=== PATIENT | female | born 1955 | race Caucasian/White ===

== ENCOUNTER → 2022-02-24 | Outpatient (CLI) | payer MEDICARE ==
[~2022-02-24] MED LIST: IBUP600 PO; Norco 5-325 Ta1 EACH PO
[2022-02-24 19:37] LABS: CHOL/HDL RATIO 3.8; Cholesterol 166 mg/dL (50-200); HDL Cholesterol 44 mg/dL (>39); Low Density Lipoprotein Chol 88 mg/dL (0-110); Triglycerides 171 mg/dL (30-160); Very Low Density Lipoprot Chol 34 mg/dL (6-32)
== END | disposition home or self-care (01) ==
LOC: LAB 13:16 → LAB SHORT 13:16
PROVIDERS: Physician Assistant
DX: E78.5 Hyperlipidemia, unspecified (principal)
CPT/HCPCS: 36415; 80061

== ENCOUNTER 2022-07-24 09:32 | Day surgery (SDC) | payer OTHER ==
[~2022-07-24] VITALS: Ht 154.9 cm; Wt 56.2 kg
[~2022-07-24 09:32] MED LIST changes: +ATOR40TA PO; +DOXE10 PO; +GABA300 PO
--- NOTE | 2022-07-24 11:18 | NUR ---
07/24/22 1118 Meera Muse HISTORY, CHART, MEDICATIONS AND ALLERGIES REVIEWED BEFORE START OF PROCEDURE. PATIENT CONFIRMS NPO STATUS AND AGREES WITH SCHEDULED PROCEDURE. 3-LEAD EKG REVIEWED WITH PHYSICIAN PRIOR TO START OF PROCEDURE. MONITOR INTACT WITH CONTINUOUS PULSE OXIMETRY,CAPNOGRAPHY, 3-LEAD EKG, INTERMITTENT BP. SUPPLEMENTAL O2 TO BE TITRATED THROUGHOUT PROCEDURE TO MAINTAIN O2 SATURATION ABOVE 90%. PATIENT DETERMINED TO BE ASA APPROPRIATE FOR PROPOFOL SEDATION PRIOR TO START OF PROCEDURE BY
--- NOTE | 2022-07-24 11:36 | NUR ---
REPORT RECEIVED FROM ROSARIO ARORA RN. PT ABLE TO REPOSITION SELF IN BED. PT DENIES PAIN OR DISCOMFORT AT THIS TIME. PT REQUESTING PO FLUIDS AND TOLERATING THEM WELL.
--- NOTE | 2022-07-24 11:45 | NUR ---
REPORT FROM NENA FIORE RN. PT AXOX4, ABLE TO REPOSITION SELF IN BED, VSS. PT TOLERATING PO FLUIDS AND FOOD, REQUESTING TO GO HOME.
--- NOTE | 2022-07-24 11:55 | NUR ---
Patient up to Ambulate independently. Gait steady. Discharge instructions reviewed with patient. Patient verbalizes understanding. Copy given to patient to take home. Patient States Post-Procedure ride home has been arranged. Discharged via wheelchair to private car for ride home. ALL BELONGINGS RETURNED TO PATIENT, TO INCLUDE EYE GLASSES.
== END 2022-07-24 22:48 | disposition home or self-care (01) ==
LOC: ORSCMMR 09:32 → ORD 10:30 → ORSCMMR 10:30
PROVIDERS: Internal Medicine Gastroenterology
PROC: 0DBK8ZX Excision of Ascending Colon, Via Natural or Artificial Opening Endoscopic, Diagnostic (ICD-10-PCS; principal; 2022-07-24 10:30)
DX: Z12.11 Encounter for screening for malignant neoplasm of colon (principal); Z86.010 Personal history of colon polyps; Z80.0 Family history of malignant neoplasm of digestive organs; K63.5 Polyp of colon; E78.00 Pure hypercholesterolemia, unspecified; F32.A Depression, unspecified; Z79.899 Other long term (current) drug therapy
CPT/HCPCS: 88305; J2704; J7120

== ENCOUNTER 2022-11-29 10:29 | Inpatient (IN) | payer OTHER ==
[2022-11-29] VITALS (36 sets, daily range): BP systolic 68–149; BP diastolic 48–102
[~2022-11-29] VITALS: Ht 167.6 cm; Wt 55.7 kg
[2022-11-29 11:15] LABS: Albumin, Blood 2.9 g/dL (3.4-5.0); Albumin/Globulin Ratio 0.8 (0.8-1.8); Bilirubin, Total 2.2 mg/dL (0.1-1.0); Bun/Creatinine Ratio 6.9 (12.0-20.0); Calcium, Blood 6.6 mg/dL (8.5-10.1); Creatinine, Blood 0.44 mg/dL (0.40-1.00); Globulin, Blood 3.6 g/dL (2.2-4.0); Total Protein, Blood 6.5 g/dL (6.4-8.2)
[2022-11-29 11:41] LABS: Base Excess Venous -7.4 mmol/L; Bicarbonate Venous 18.6 mmol/L (24.0-30.0); PCO2 Venous 38.3 mmHg (38-42)
[2022-11-29 13:06] LABS: Source, Urine Straight Cath
[2022-11-29 13:10] LABS: Appearance, Urine Clear (Clear); Bilirubin, Urine Neg (Neg); Blood, Urine 4+ (Neg); Color, Urine Yellow (P-Yellow); Glucose Qualitative, Urine 3+ (Neg); Ketones, Urine 1+ (Neg); Leukocyte Esterase, Urine Neg (Neg); Nitrite, Urine Neg (Neg); Protein, Urine 1+ (Neg); Urobilinogen, Urine NORM (Normal)
[2022-11-29 13:21] LABS: Amorphous Mod (0-Heavy); Bacteria Not Seen /hpf; Squamous Epithelial Cells Few /hpf (Few); White Blood Cells, Urine 0-2 /hpf (0-5)
[2022-11-29 13:22] LABS: Transitional Epithelial Cells Rare /hpf (0-Rare)
[2022-11-29 13:23] LABS: U Amphetamine Screen Not Detected; U Barbituate Screen Not Detected; U Benzodiazapine Screen Not Detected; U Buprenorphine Screen Not Detected; U Cannabinoids Screen Not Detected; U Cocaine Screen Not Detected; U Methadone Screen Not Detected; U Methamphetamine Screen Not Detected; U Opiates Screen Not Detected; U Oxycodone Screen Not Detected; U Phencyclidine Screen Not Detected; U Propoxyphene Screen Not Detected
[2022-11-29 14:08] LABS: BASOPHILS ABSOLUTE AUTO 0.03 K/mm3 (0.00-0.23); BASOPHILS PERCENT AUTO 0 % (0-2); EOSINOPHILS PERCENT AUTO 0 % (0-6); Hematocrit 28.8 % (33.0-51.0); IMMATURE GRAN ABSOLUTE AUTO 0.11 K/mm3 (0.00-0.10); IMMATURE GRAN PERCENT AUTO 1 % (0-1); LYMPHOCYTES ABSOLUTE AUTO 1.69 K/mm3 (0.84-5.20); LYMPHOCYTES PERCENT AUTO 12 % (21-46); MONOCYTES ABSOLUTE AUTO 1.85 K/mm3 (0.16-1.47); MONOCYTES PERCENT AUTO 13 % (4-13); Mean Corpuscular Volume 97 fL (80-100); Mean Platelet Volume 10.4 fL (9.1-12.4); NEUTROPHILS ABSOLUTE AUTO 10.42 K/mm3 (1.96-9.15); NEUTROPHILS PERCENT AUTO 74 % (41-73); NRBC ABSOLUTE 0.04 K/mm3 (0.00-0.02); NRBC Auto 0.3 /100 WBC (0.0-0.2); Platelet Count 139 K/mm3 (150-400); RDW Coefficient Variation 14.6 % (11.7-14.2); RDW Standard Deviation 52.3 fL (35.1-46.3); Red Blood Cell Count 2.96 M/mm3 (3.80-5.20)
--- NOTE | 2022-11-29 16:29 | NUR ---
PT ARRIVAL... PT WAS ADMITTED FOR ETOH W/D. PRECEDEX DRIP WAS STARTED. PT IS A&O TO SELF ONLY, SHE KEEPS ASKING FOR WINE AND THINKS SHE IS AT HOME. SHE IS IN SR IN THE 80'S-90'S BP IS SOFT BUT MAPS ARE >65. SHE IS ON RA WITH O2 SATS>95% L/S CLEAR IN THE UPPER LOBES COARSE IN THE LOWER LOBES. BT PRESENT AND NORMOACTIVE, ABD IS SOFT AND NONTENDER TO PALPATION. CWIA PROTOCOL ORDERED. CALL LIGHT IN REACH WILL CONTINUE TO MONITOR.
[2022-11-29 16:43] LABS: Magnesium, Blood 2.2 mg/dL (1.6-2.4)
[2022-11-29 16:45] LABS: Albumin, Blood 2.9 g/dL (3.4-5.0); Albumin/Globulin Ratio 0.9 (0.8-1.8); Bilirubin, Total 2.1 mg/dL (0.1-1.0); Calcium, Blood 7.2 mg/dL (8.5-10.1); Creatinine, Blood 0.4 mg/dL (0.40-1.00); Globulin, Blood 3.1 g/dL (2.2-4.0); Potassium, Blood 2.7 mmol/L (3.5-5.5)
--- NOTE | 2022-11-29 17:23 | NUR ---
SHIFT SUMMARY.... PT HAS BEEN MEDICATED PER [facility] PROTOCOL ALONG WITH THE PRECEDEX DRIP, THE PT BECAME HYPOTENSIVE WITH THE PRECEDEX DRIP RUNNING AT 0.7MCG/KG/HR, THIS WAS STOPPED, THE PT'S BP IMPROVED TO MAPS >65. THE PRECEDEX DRIP WAS RESTARTED AT 0.2MCG/KG/HR CURRENTLY HER MAPS CONTINUE TO HOLD >65 AT LOWER DOSES. SHE CONTINUES TO BE IN SR IN THE 80'S. SHE ALSO CONTINUES TO BE CONFUSED, SHE WILL FOLLOW SOME SIMPLE COMMANDS BUT IS ORIENTED TO SELF ONLY AT THIS TIME. CALL LIGHT IN REACH, BED ALARM IS ON WILL CONTINUE TO MONITOR UNTIL REPORT IS GIVEN TO ONCOMING RN.
--- NOTE | 2022-11-29 22:42 | NUR ---
ASSUMPTION OF CARE/ASSESSMENT: ASSUMED CARE OF PT AT 1900. PT IN BED ASLEEP; PRECEDEX INFUSING AT 0.3 MCG. PT WAKES TO VERBAL STIMULI BUT REMAINS AMS; PT A&O TO SELF AND THINKS THAT SHE IS AT HOME AND CANNOT ANSWER ANY OTHER QUESTIONS. PT ATTEMPTING TO GET OUT OF BED UNSAFELY AND IS NOT REDIRECTABLE AT THIS TIME. PT ON RA WITH SPO2 96<; LUNG SOUNDS CLEAR WITH DIM BASES. SR ON MONITOR WITH HR 70'S AND SBO 110'S; PT DOES GET TACHYCARDIA WHEN AWAKE AND DURING PT CARE. HYPOACTIVE BOWEL SOUNDS IN ALL QUADRANTS; ABD SOFT, NON-TENDER AND PT CURRENTLY NPO. FRANCIS PLACED THIS SHIFT AFTER A COUPLE BLADDER SCANS POST VOIDING SHOWING ACUTE RETENTION. FRANCIS PLACED AND DRAINING TO GRAVITY WITH CLEAR, YELLOW URINE. SKIN WARM, WITH SCATTERED BRUSING NOTE AND SIGNIFICANT BRUISE TO LOWER LIP FROM RECENT FALL AT HOME. PT HAS PG TO DIANDRA, PIV TO RAC. BED LOWERED, CALL LIGHT IN REACH.
[2022-11-30] VITALS (89 sets, daily range): BP systolic 87–156; BP diastolic 52–133
[2022-11-30 00:18] LABS: Source, Urine Foley catheter
[2022-11-30 00:25] LABS: Bilirubin, Urine Neg (Neg); Blood, Urine 3+ (Neg); Glucose Qualitative, Urine Neg (Neg); Ketones, Urine Neg (Neg); Leukocyte Esterase, Urine Neg (Neg); Nitrite, Urine Neg (Neg); Protein, Urine Neg (Neg); Specific Gravity, Urine 1.015 (1.003-1.022); Urobilinogen, Urine NORM (Normal)
[2022-11-30 00:40] LABS: Appearance, Urine Clear (Clear); Color, Urine Yellow (P-Yellow)
[2022-11-30 00:43] LABS: Bacteria Not Seen /hpf; Squamous Epithelial Cells Not Seen /hpf (Few); White Blood Cells, Urine Not Seen /hpf (0-5)
[2022-11-30 01:09] LABS: Magnesium, Blood 1.7 mg/dL (1.6-2.4)
[2022-11-30 01:16] LABS: Albumin, Blood 2.4 g/dL (3.4-5.0); Albumin/Globulin Ratio 0.9 (0.8-1.8); Bilirubin, Total 1.9 mg/dL (0.1-1.0); Bun/Creatinine Ratio 4.4 (12.0-20.0); Calcium, Blood 6.4 mg/dL (8.5-10.1); Creatinine, Blood 0.45 mg/dL (0.40-1.00); Globulin, Blood 2.7 g/dL (2.2-4.0); Total Protein, Blood 5.1 g/dL (6.4-8.2)
--- NOTE | 2022-11-30 05:54 | NUR ---
SHIFT SUMMARY: PT REMAINS CONFUSED AND ON PRECEDEX GTT @ 0.6 MCG/KG/HR; PT WAKES TO VERBAL STIMULI AND CANNOT PARTICIPATE IN ORIENTING QUESTIONS, FOLLOWING COMMANDS OR REDIRECTABLE AT THIS TIME. VSS THROUGHOUT THE NIGHT. PT HAD 2500 URINE OUTPUT FROM FRANCIS THIS SHIFT. BED LOWERED, CALL LIGHT IN REACH.
[2022-11-30 07:21] LABS: Magnesium, Blood 1.7 mg/dL (1.6-2.4)
[2022-11-30 08:29] LABS: Albumin, Blood 2.2 g/dL (3.4-5.0); Albumin/Globulin Ratio 0.8 (0.8-1.8); Bilirubin, Total 1.7 mg/dL (0.1-1.0); Bun/Creatinine Ratio 2.6 (12.0-20.0); Calcium, Blood 6.4 mg/dL (8.5-10.1); Creatinine, Blood 0.39 mg/dL (0.40-1.00); Globulin, Blood 2.6 g/dL (2.2-4.0); Potassium, Blood 2.4 mmol/L (3.5-5.5); Total Protein, Blood 4.8 g/dL (6.4-8.2)
--- NOTE | 2022-11-30 08:48 | NUR ---
AM NOTE... ASSUMED CARE OF PT AT 0700. PT IS ON A PRECEDEX DRIP AT 0.4MCG/KG/HR FOR ETOH W/D. PT IS YELLING OUT "GM" AND "GIVE ME SOME WINE PLEASE." SHE IS ALSO ATTEMPTING TO PULL OUT HER IVs AND CLIMB OUT OF BED. SOFT WRIST RESTRAINTS ARE IN PLACE TO PROTECT LINES. THE PT IS A&O TO SELF. SHE IS ON RA WITH O2 SATS>95% L/S CLEAR T/O. SHE IS IN SR IN THE 80'S BP IS STABLE. WILL CONTINUE TO MONITOR.
--- NOTE | 2022-11-30 17:11 | NUR ---
SHIFT SUMMARY.... NO ACUTE NEGATIVE CHANGES NOTED THIS SHIFT. PT CONTINUES TO BE ON A PRECEDEX DRIP AT 0.5MCG/KG/HR WITH PRN IV ATIVAN PUSHES PER CIWA PROTOCOLS. PT'S VS HAVE BEEN STABLE. PT'S FRANCIS IS PATENT AND DRAINING TO GRAVITY. PT'S CIWA'S SCORES HAVE BEEN 8-14. SHE CONTINUES TO HAVE VISUAL HALLUCINATIONS AND ATTEMPTS TO CRAWL OUT OF BED. PT'S SON ANNIKA WAS AT THE BEDSIDE MOST OF THIS SHIFT. CALL LIGHT IN REACH, BED ALARM IS ON WILL CONTINUE TO MONITOR UNTIL REPORT IS GIVEN TO ONCOMING RN.
--- NOTE | 2022-11-30 20:31 | NUR ---
PATIENT RESTING IN BED WITH TV ON. AWAKENS TO VERBAL STIMULI, THINKING THAT SHE IS IN GM'S HOUSE AND THAT IT IS 1978. ABLE TO SAY FULL NAME AND DATE AND THAT SHE IS 66 Y/O. ASKING FOR WINE AND DOG FOOD. INSISTING THAT HER DOG IS HERE AT THE FOOT OF HER BED. ANIBAL DRINKS OF WATER WITHOUT DIFFICULTY. POSITIONING SELF IN BED FOR COMFORT. C/O LEG AND HIP PAIN WITH POSITIONING. MULTIPLE BRUISING TO BODY, LARGE BRUISE TO RIGHT BOTTOM LIP.
[2022-11-30 20:43] LABS: Bun/Creatinine Ratio 2.2 (12.0-20.0); Calcium, Blood 7.1 mg/dL (8.5-10.1); Creatinine, Blood 0.46 mg/dL (0.40-1.00); Magnesium, Blood 1.5 mg/dL (1.6-2.4); Potassium, Blood 3.8 mmol/L (3.5-5.5)
--- NOTE | 2022-11-30 20:59 | NUR ---
DOCTOR CHRIS NOTIFIED OF REPEAT CHEM RESULTS, ORDER FOR MAG REPLACEMENT OBTAINED
[2022-12-01] VITALS (66 sets, daily range): BP systolic 77–169; BP diastolic 49–118
[2022-12-01 04:07] LABS: BASOPHILS ABSOLUTE AUTO 0.01 K/mm3 (0.00-0.23); BASOPHILS PERCENT AUTO 0 % (0-2); EOSINOPHILS ABSOLUTE AUTO 0.01 K/mm3 (0.00-0.68); EOSINOPHILS PERCENT AUTO 0 % (0-6); Hematocrit 29.4 % (33.0-51.0); Hemoglobin 10.4 g/dL (11.5-16.0); IMMATURE GRAN ABSOLUTE AUTO 0.03 K/mm3 (0.00-0.10); IMMATURE GRAN PERCENT AUTO 0 % (0-1); LYMPHOCYTES ABSOLUTE AUTO 2.01 K/mm3 (0.84-5.20); LYMPHOCYTES PERCENT AUTO 28 % (21-46); MONOCYTES ABSOLUTE AUTO 1.03 K/mm3 (0.16-1.47); MONOCYTES PERCENT AUTO 14 % (4-13); Mean Corpuscular HGB 37.3 pg (26.0-34.0); Mean Corpuscular HGB Conc 35.4 g/dL (31.5-36.5); Mean Platelet Volume 10.1 fL (9.1-12.4); NEUTROPHILS ABSOLUTE AUTO 4.18 K/mm3 (1.96-9.15); NEUTROPHILS PERCENT AUTO 58 % (41-73); Platelet Count 142 K/mm3 (150-400); RDW Coefficient Variation 15.9 % (11.7-14.2); RDW Standard Deviation 61.2 fL (35.1-46.3); Red Blood Cell Count 2.79 M/mm3 (3.80-5.20); White Blood Cell Count 7.27 K/mm3 (4.00-11.30)
[2022-12-01 04:08] LABS: Mean Corpuscular Volume 105 fL (80-100)
[2022-12-01 04:26] LABS: Albumin, Blood 2.3 g/dL (3.4-5.0); Albumin/Globulin Ratio 0.9 (0.8-1.8); Bilirubin, Total 1.5 mg/dL (0.1-1.0); Bun/Creatinine Ratio 2.1 (12.0-20.0); Calcium, Blood 7.1 mg/dL (8.5-10.1); Creatinine, Blood 0.48 mg/dL (0.40-1.00); Globulin, Blood 2.7 g/dL (2.2-4.0); Magnesium, Blood 2.4 mg/dL (1.6-2.4)
--- NOTE | 2022-12-01 06:42 | NUR ---
SUMMARY PATIENT SLEEPING OFF AND ON T/O NIGHT. PRECEDEX 0.3 MCG INFUSING. HYPOTENSIVE WHILE SLEEPING IV METOPROLOL HELD THIS MORNING. PATIENT MEDICATED ONCE WITH OXYCODONE FOR PAIN. ATIVAN IV GIVEN AROUND MIDNIGHT FOR INCREASED RESTLESS AND DIFFICULTY SLEEPING. CONTINUES TO ASK FOR WINE. NO LONGER SEEING HER DOG AT THE FOOT OF THE BED.
--- NOTE | 2022-12-01 07:15 | NUR ---
CARE ASSUMPTION DURING BEDSIDE SHIFT REPORT Burke LOJA RN THE PT IS LYING IN BED ON RM AIR. THE PT AROUSES TO MY VOICE AND APPEARS MODERATELY TREMULOUS ONCE AWAKE. PT HAS MUMBLED SPEECH BUT IS ANSWERING QUESTIONS APPROPRIATELY. MONITOR SHOWING SR 90'S. BP STABLE. PT DENIES ANY NAUSEA. PT'S EYES ARE VERY BLOO-SHOT AND HE APPEARS PHYSICALLY VERY SICK. PT PARTICIPATES IN CARE AND DENIES ANY FURTHER NEEDS AT THIS TIME. 1 ON 1 SITTER IN PT'S DOOR.
--- NOTE | 2022-12-01 12:36 | NUR ---
UPDATE PROVIDER CONTACTED AND NOTIFIED THAT THE PT'S HR WENT UP TO 151 WHEN SHE WAS STOOD UP AT THE SIDE OF THE BED. PROVIDER ALSO NOTIFIED OF THIS RN'S CONCERNS TAHT THE PT IS ASPIRATING ON HER THIN LIQUIDS. ST ORDERED.
--- NOTE | 2022-12-01 15:11 | NUR ---
UPDATE/NEURO CHANGES PT'S SPEECH BECOMING MUCH MORE SLURRED APPEARING TO BE HAVING DIFFICULTY SWALLOWING HER SECRETIONS AT THIS TIME. PT'S AUTOMATIC MOLD SANDER, ARM STRENGTH, AND LEG STRENGTH ARE ALL STRONG AND EVEN. PT'S MENTATION IS NOT MUCH DIFFERENT THEN IT WAS EARLIER IN THE SHIFT BUT SHE DOES SEEM TO BE REPEATING BACK SENTANCES THAT ARE SAID TO HER WHICH SHE WAS NOT DOING EARLIER IN THE SHIFT. DR. GANNON CONTACTED AND NOTIFIED OF THESE CHANGES. ORDERS FOR CHEM PANEL, MAGNESIUM LEVEL, VBG AND STAT HEAD CT. PT TO REMAIN ICU STATUS AND BOTH LIBRIUM AND ATIVAN ORDERS DC'D.
[2022-12-01 15:28] LABS: Base Excess Venous 0.5 mmol/L; Bicarbonate Venous 25.3 mmol/L (24.0-30.0); PCO2 Venous 32.8 mmHg (38-42); pH Blood Venous 7.48 (7.34-7.37)
[2022-12-01 15:39] LABS: Magnesium, Blood 1.8 mg/dL (1.6-2.4)
[2022-12-01 15:45] LABS: Alanine Aminotransfer (ALT/SGP 73 U/L (12-78); Albumin, Blood 2.7 g/dL (3.4-5.0); Alk Phos 255 U/L (50-136); Anion Gap 9 mmol/L (6-16); Aspartate Aminotrans (AST/SGOT 170 U/L (12-37); Bilirubin, Total 1.6 mg/dL (0.1-1.0); Blood Urea Nitrogen <1 mg/dL (8-24); Bun/Creatinine Ratio Unable to Calculate (12.0-20.0); CO2, Blood 23 mmol/L (21-32); Calcium, Blood 7.3 mg/dL (8.5-10.1); Chloride, Blood 100 mmol/L (98-108); Globulin, Blood 2.8 g/dL (2.2-4.0); Glomerular Filtration Rate 102 (60-); Glucose, Blood 110 mg/dL (70-99); Potassium, Blood 3.5 mmol/L (3.5-5.5); Sodium, Blood 132 mmol/L (136-145); Total Protein, Blood 5.5 g/dL (6.4-8.2)
--- NOTE | 2022-12-01 18:09 | NUR ---
DAY SHIFT SUMMARY THE PT BEGAN THE SHIFT ON PRECEDEX 0.3MCG/KG/MIN W MINIMAL AGITATION BUT VERY CONFUSED. THE PT WAS TAKEN OFF OF PRECEDEX PER MD REQUEST AND WAS GIVEN LIBRIUM AND ATIVAN FOR WITHDRAWL SYMTOMS. PT WAS ABLE TO FOLLOW SOME COMMANDS AND DISPLAY AN EFFECTIVE SWALLOW THIS AM BUT BEFORE LUNCH SHE BEGAN TO HAVE A TIGHT RESP EFFORT ALMOST GRUNTING W EXHALATION WHILE AWAKE. PT SPEECH THERAPY EVALUATE HER SWALLOWING ABILITY AND THEY RECCOMEND NPO STATUS EXCEPT FOR CRUSHED MEDS IN APPLESAUCE. THE PT HAS BEEN VERY AGITATED AND CONFUSED THIS SHIFT REQUIRING ADDITIONAL DOSES OF ATIVAN AND LIBRIUM. THIS AFTERNOON THE PT'S SPEECH WAS NOTICEABLY MORE SLURRED AND HER R EYELID WAS VERY DROOPY. PT'S CBG CHECKED AND WAS 122. PROVIDER NOTIFIED OF CHANGE IN NEURO STATUS SO LABS AND HEAD CT ORDERED. PROVIDER EVALUATED THE PT AT BEDSIDE TO WHICH THE PT WAS ASLEEP BUT WHEN AWOKE SHE BECAME VERY AGITATED AND HER HR WAS ST 130'S. PT PLACED BACK ON PRECEDEX PER MD ORDER INSTEAD OF LIBRIUM AND ATIVAN USE. THE PT'S HR HAS BEEN ELEVATED ALL SHIFT HIGH 150 WHEN SHE ATTMPTED TO STAND AT THE BEDSIDE. PT'S BP ELEVATED THIS SHIFT WELL BUT IS WNL AND STABLE THIS AFTEERNOON. PO METOPROLOL ORDERED THIS SHIFT BUT HAS NOT BEEN GIVEN YET DUE TO RESARTING PRECEDEX WHICH HAS LOWERED HER HR AND BP. PT MAINTAINING SPO2 >94% ON RM AIR THIS SHIFT. LS WERE CLEAR THIS AM BUT SHE DOES HAVE SOME COARSE LS IN HER R BASE THIS AFTERNOON. CIWA'S REMAIN 9-14 THIS SHIFT. WILL REPORT TO ONCOMING RN.
--- NOTE | 2022-12-01 18:39 | NUR ---
UPDATE THIS RN SPOKE TO PT'S SON NOTIFYING HIM OF CHANGES AND PT'S CONTINUED ICU STATUS.
--- NOTE | 2022-12-01 19:40 | NUR ---
PATIENT SLEEPING, AWAKENS TO SLIGHT STIMULI. MOVING ALL EXTREMITIES EQUALLY AND ABLE TO REMEMBER THAT SHE IS IN THE HOSPITAL IN [place], AND THAT IT IS NOVEMBER, BUT UNSURE OF YEAR. PATIENT WANTING TO KEEP EYES CLOSED, OPEN TO DIRECTION RIGHT EYE LID APPEARS SLIGHTLY SWOLLEN. JANET. SLIGHT GRUNT WHEN TALKING "I JUST DON'T FEEL GOOD" PRECEDEX 0.4 MCG INFUSING. C/O PAIN WITH REPOSITIONING, BUT IS ABLE TO POSITION SELF IN BED FOR COMFORT.
[2022-12-02] VITALS (38 sets, daily range): BP systolic 98–172; BP diastolic 65–112
[2022-12-02 04:18] LABS: BASOPHILS ABSOLUTE AUTO 0.03 K/mm3 (0.00-0.23); BASOPHILS PERCENT AUTO 0 % (0-2); EOSINOPHILS ABSOLUTE AUTO 0.03 K/mm3 (0.00-0.68); EOSINOPHILS PERCENT AUTO 0 % (0-6); Hematocrit 30.8 % (33.0-51.0); Hemoglobin 10.5 g/dL (11.5-16.0); IMMATURE GRAN ABSOLUTE AUTO 0.02 K/mm3 (0.00-0.10); IMMATURE GRAN PERCENT AUTO 0 % (0-1); LYMPHOCYTES ABSOLUTE AUTO 2.34 K/mm3 (0.84-5.20); LYMPHOCYTES PERCENT AUTO 34 % (21-46); MONOCYTES PERCENT AUTO 16 % (4-13); Mean Corpuscular HGB 37.2 pg (26.0-34.0); Mean Corpuscular HGB Conc 34.1 g/dL (31.5-36.5); Mean Corpuscular Volume 109 fL (80-100); Mean Platelet Volume 9.6 fL (9.1-12.4); NEUTROPHILS ABSOLUTE AUTO 3.43 K/mm3 (1.96-9.15); NEUTROPHILS PERCENT AUTO 49 % (41-73); NRBC ABSOLUTE 0.02 K/mm3 (0.00-0.02); NRBC Auto 0.3 /100 WBC (0.0-0.2); Platelet Count 142 K/mm3 (150-400); RDW Coefficient Variation 16.2 % (11.7-14.2); RDW Standard Deviation 65.9 fL (35.1-46.3); Red Blood Cell Count 2.82 M/mm3 (3.80-5.20); White Blood Cell Count 6.95 K/mm3 (4.00-11.30)
[2022-12-02 04:33] LABS: Albumin, Blood 2.3 g/dL (3.4-5.0); Albumin/Globulin Ratio 0.9 (0.8-1.8); Bilirubin, Total 1.3 mg/dL (0.1-1.0); Bun/Creatinine Ratio 1.9 (12.0-20.0); Calcium, Blood 7.4 mg/dL (8.5-10.1); Creatinine, Blood 0.53 mg/dL (0.40-1.00); Globulin, Blood 2.6 g/dL (2.2-4.0); Potassium, Blood 3.1 mmol/L (3.5-5.5); Total Protein, Blood 4.9 g/dL (6.4-8.2)
--- NOTE | 2022-12-02 05:57 | NUR ---
SUMMARY PATIENT SLEEPING OFF AND ON T/O NIGHT. AWAKENS TO VERBAL STIMULI. REPOSITIONING SELF FROM SIDE TO SIDE T/O NIGHT FOR COMFORT. PRECEDEX TITRATED DOWN TO 0.2 MCG. HEART RATE 80-90'S SR T/O NIGHT.
--- NOTE | 2022-12-02 08:00 | NUR ---
INITIAL ASSESSMENT PATIENT HAS OFF AND ON CONFUSION. PATIENT ABLE TO ANSWER SELF, PLACE, TOWN, AND YEAR WHEN ASKING QUESTIONS WITH OFF GOING NIGHT NURSE. PATIENT NOW DISORIENTED TO YEAR AND STATES SHE IS IN [place]. PATIENT DROWSY. PATIENT SLEEPS WHEN NURSE NOT IN ROOM. PATIENT COMPLAINS OF PAIN "ALL OVER". FLAT AFFECT NOTED. SPEECH SLIGHTLY MUMBLED BUT FAIRLY EASY TO UNDERSTAND. SLIGHT DROOP OF R MOUTH AND R EYELID. PATIENT FELL ON THIS SIDE OF FACE AT HOME. PATIENT FIDGETY WHEN AWAKE AND NURSE IN ROOM; TRYING TO GRAB AT GOWN AND LINES/ CORDS. CIWA SCORE OF 5 THIS AM. PRECEDEX INFUSING AT 0.2 MCG/ KG/ HOUR. NO TREMORS NOTED. PUPILS SAME SIZE AND REACT BRISKLY TO LIGHT. EQUAL EXTREMITY MOVEMENTS TO BOTH SIDES OF BODY. PATIENT AFEBRILE. PATIENT SATTING 90% AND GREATER ON RA. CRACKLES NOTED IN RUL AND LLL. PATIENT IN ST, HR IN THE LOW 100S. SBP IN THE 140S. HYPERACTIVE BOWEL SOUNDS NOTED. FRANCIS IN PLACE DRAINING YELLOW COLORED URINE. SKIN PALE, FRAGILE, COOL. SCATTERED BRUISES NOTED ALL T/O BODY. BRUISE AND SCAB NOTED TO R LOWER LIP. COCCYX AND JAZMINE AREA REDDENED. NS TKO. BED LOW, CALL LIGHT IN REACH, BED ALARM ON.
--- NOTE | 2022-12-02 12:30 | NUR ---
PATIENT AFEBRILE. HR IN THE 90S. SBP IN THE 140S. PATIENT MORE AWAKE. PATIENT ORIENTED TO TOWN, HOSPITAL, SELF, MONTH AND YEAR. PRECEDEX PLACED ON SB. BED LOW, CALL LIGHT IN REACH, BED ALARM ON.
--- NOTE | 2022-12-02 17:08 | NUR ---
SHIFT SUMMARY PATIENT LETHARGIC AT BEGINNING OF SHIFT. PATIENT MORE AWAKE AFTER PRECEDEX PLACED ON SB. PATIENT HAS REMAINED MOSTLY ORIENTED THIS SHIFT. SHORT TIME AGO PATIENT STARTED TO HAVE HALLUCINCATION OF FRIEND BEING OUTSIDE ROOM. PATIENT STARTED TO BECOME AGITATED AND PULLING AT CORDS. PATIENT GIVEN PRN ATIVAN IV 0.5 MG OT. ANOTHER DOSE OF 0.5 MG IV GIVEN AFTER FIRST DOSE INEFFECTIVE. PATIENT IS NOW CALM AND RESTING QUIETLY IN BED. PATIENT SPEECH REMAINS SLIGHTLY MUMBLED/ GARBLED. PATIENT HAD TMAX OF 101.9 DEGREES FAHRENHEIT. PATIENT REMAINED SATTING 90% AND GREATER ON RA. PATIENT REMAINED SR TO ST, HR 90S TO 130S. SBP 1-TEENS TO 170S. EXTRA DOSE OF 25 MG LOPRESSOR GIVEN THIS SHIFT FOR TACHYCARDIA. HTN AND TACHYCARDIA IMPROVED AFTER PRN ATIVAN. NO BM THIS SHIFT. PATIENT ADVANCED TO PUREE DIET WITH NECTAR THICK LIQUIDS THIS AM BY SPEECH THERAPIST. FRANCIS DRAINED ADEQUATE AMOUNT OF URINE. POWDER OBTAINED THIS SHIFT FOR REDDENED JAZMINE FOLDS. PATIENT TURNED Q2H. NS TKO. PATIENT RECEIVED 40 MEQ KCL THIS AM FOR POTASSIUM OF 3.1. ECHO PERFORMED THIS SHIFT. PATIENT HAD COMPLETE BED BATH THIS SHIFT. PATIENT'S SON CALLED TO CHECK UP ON PATIENT. PATIENT'S FRIEND, GM, HERE TO VISIT THIS AFTERNOON. PATIENT TO BE TRANSFERRED TO PCU, ROOM 09. PATIENT'S SON CALLED AND MESSAGE LEFT OF TRANSFER. PATIENT HAS BEEN TAKEN OUT TO PCU, FOLLOWED BY GM. ALL BELONGINGS SENT WITH PATIENT. TRANSFER COMPLETE.
[2022-12-03 03:19] VITALS: BP 129/83
[2022-12-03 05:08] LABS: BASOPHILS ABSOLUTE AUTO 0.04 K/mm3 (0.00-0.23); BASOPHILS PERCENT AUTO 0 % (0-2); EOSINOPHILS ABSOLUTE AUTO 0.01 K/mm3 (0.00-0.68); EOSINOPHILS PERCENT AUTO 0 % (0-6); Hematocrit 32.8 % (33.0-51.0); IMMATURE GRAN ABSOLUTE AUTO 0.04 K/mm3 (0.00-0.10); IMMATURE GRAN PERCENT AUTO 0 % (0-1); LYMPHOCYTES ABSOLUTE AUTO 3.64 K/mm3 (0.84-5.20); LYMPHOCYTES PERCENT AUTO 31 % (21-46); MONOCYTES ABSOLUTE AUTO 2.78 K/mm3 (0.16-1.47); MONOCYTES PERCENT AUTO 23 % (4-13); Mean Corpuscular HGB 37.2 pg (26.0-34.0); Mean Corpuscular HGB Conc 33.5 g/dL (31.5-36.5); Mean Corpuscular Volume 111 fL (80-100); Mean Platelet Volume 10.3 fL (9.1-12.4); NEUTROPHILS ABSOLUTE AUTO 5.41 K/mm3 (1.96-9.15); NEUTROPHILS PERCENT AUTO 46 % (41-73); Platelet Count 197 K/mm3 (150-400); RDW Coefficient Variation 15.8 % (11.7-14.2); RDW Standard Deviation 65.1 fL (35.1-46.3); Red Blood Cell Count 2.96 M/mm3 (3.80-5.20); White Blood Cell Count 11.92 K/mm3 (4.00-11.30)
[2022-12-03 05:41] LABS: Albumin, Blood 2.5 g/dL (3.4-5.0); Albumin/Globulin Ratio 0.8 (0.8-1.8); Bilirubin, Total 1.2 mg/dL (0.1-1.0); Bun/Creatinine Ratio 5.7 (12.0-20.0); Calcium, Blood 7.8 mg/dL (8.5-10.1); Creatinine, Blood 0.53 mg/dL (0.40-1.00); Potassium, Blood 3.5 mmol/L (3.5-5.5); Total Protein, Blood 5.5 g/dL (6.4-8.2)
--- NOTE | 2022-12-03 06:55 | NUR ---
SHIFT SUMMARY A/Ox2, CONTINUES TO BE CONFUSED/IMPULSIVE AT TIMES FOR PT HAS FREQUENTLY ATTEMPTED TO PULL OFF HER TELE LEADS OR POWERGLIDE. FOR THE MOST PART, PT IS COOPERATIVE WITH CARE WHEN PROVIDED WITH REDIRECTION. CARDIAC, REMAINS IN SR-ST RHYTHM 90-120'S. WITH NO REPORTS OF ANY CP OR PRESSURE. SBP HAS REMAINED STABLE RANGING 120/130'S. RESPIRATORY, MAINTAINS SPO2 >90% ON RA. DENIES ANY SOB OR DYSPNEA AT REST. SOME TACHYPNEA NOTED WITH MINIMAL EXERTION. GI/, FRANCIS CATH IN PLACE AND DRAINING MALICK COLORED URINE TO GRAVITY. NO BM FOR ME THIS SHIT. CURRENTLY IS VERY WEAK/CONFUSED, BUT PT/OT ARE ON BOARD. THIS RN ENCOURAGED INCREASING PO FLUID INTAKE T/O THE SHIFT. CIWAS HAVE BEEN MINIMAL RANGING 3-5 T/O THE NIGHT. DID NOT NEED TO MEDICATE WITH PRN ATIVAN. CONTINUES TO REQUEST WINE EVERY HOUR OR SO STATING PLEASE BRING ME TWO GLASSES OF WINE OR BRING ME MY TABLE AND CUP AND PLEASE TOP ME OFF . ATTEMPTED TO REORIENTATE PT ABOUT NEED TO QUIT DRINKING WE CANNOT PROVIDE HER WITH ALCOHOL. ASSESSED PT FOR RISKS OF ANY IGNITION SOURCES WELL BEHAVIORS FOR INCREASED RISKS OF FIRE DANGER. PT EDUCATED ON COMMON SOURCES OF IGNITION WELL NEED TO KEEP A SAFE ENVIRONMENT. NO NEW ORDERS AT THIS TIME, WILL REPORT TO ONCOMING RN. EMANUEL ZUNIGA OF THIS NOTE.
[2022-12-03 07:19] VITALS: BP 164/90
[2022-12-03 09:06] VITALS: BP 130/88
[2022-12-03 09:28] VITALS: BP 146/89
--- NOTE | 2022-12-03 09:40 | NUR ---
DR. GANNON AT BEDSIDE THIS AM PT HR SUSTAINING IN THE 130'S AND HER SBP >160. DR. GANNON WANTED ME TO GIVE LOPRESSOR PUSH AND UP HER METOPROLOL TO 50 MG BID.IF HER HR IS CONTROLLED THIS AFTERNOON, DR. GANNON WANTS TO CHANGE THE PT TO MEDICAL STATUS.
[2022-12-03 11:22] VITALS: BP 153/86
--- NOTE | 2022-12-03 13:39 | NUR ---
D/C'D FRANCIS CATH THIS AM AND PLACED A PURWICK. PT SATURATED HER BED EVEN WITH THE PURWICK. PURWICK D/C'D. PT IS BOTH CONT/INC OF URINE, AND INC OF BOWEL. ENCOURAGING Q2 BEDPAN USE.
--- NOTE | 2022-12-03 16:36 | NUR ---
SHIFT SUMMARY PT A&OX2-3, SHE IS REDIRECTABLE, BUT FORGETFUL. SHE HAS NOT TRIED CLIMBING OUT OF BED BUT WE HAVE A BED ALARM ON HER BECAUSE SHE DOES NOT CALL APPROPRIATELY. PT HAD HER FRANCIS D/C'D TODAY AND HAS BEEN INC. SHE IS HAVING LOOSE STOOLS AND HAS BEEN GIVEN IMMODIUM. CIWAS HAVE BEEN 0-7 TODAY AND PT HAS NOT BEEN GIVEN ANY ATIVAN. SHE IS A 2P ROLL WHEN CHANGING HER DUE TO CONFUSION AND TRYING TO TOUCH CONTAMINATED SURFACES. ON TELE SHE WAS TACHY THIS AM BUT WE INCREASED HER METOPROLOL TO 50MG BID AND SHE WAS GIVEN A LOPRESSOR PUSH. TO HELP WITH HER W/D WE HAVE BEEN GIVING HER LEMONADE/WATER AND APPLE/CRAN. THIS HELPS SATISFY HER NEEDS. PT AND FAMILY EDUCATED ON FIRE IGNITION RISK. SEE NOTES FOR ANY UPDATES.
[2022-12-03 19:25] VITALS: BP 121/81
[2022-12-04 03:41] VITALS: BP 121/83
[2022-12-04 04:09] LABS: Hematocrit 31.7 % (33.0-51.0); Hemoglobin 10.7 g/dL (11.5-16.0); Mean Corpuscular HGB 37.2 pg (26.0-34.0); Mean Corpuscular HGB Conc 33.8 g/dL (31.5-36.5); Mean Corpuscular Volume 110 fL (80-100); Mean Platelet Volume 9.8 fL (9.1-12.4); Platelet Count 200 K/mm3 (150-400); RDW Coefficient Variation 15.1 % (11.7-14.2); RDW Standard Deviation 62.4 fL (35.1-46.3); Red Blood Cell Count 2.88 M/mm3 (3.80-5.20); White Blood Cell Count 9.03 K/mm3 (4.00-11.30)
--- NOTE | 2022-12-04 04:35 | NUR ---
SHIFT SUMMARY: PT ALERT AND ORIENTED X3, ABLE TO FOLLOW COMMANDS. FORGETFUL AT TIMES. BED ALARM ON FOR SAFETY. RESPONDS TO VERBAL AND NOXIOUS STIMULI. SLEPT ON AND OFF THIS SHIFT. BP AND HR STABLE. DENIES CP/PRESSURE. PULSES STRONG AND EQUAL THROUGHOUT. AFEBRILE. SATS >94% ON 2L NC. RESPIRATIONS EVEN AND UNLABORED. DENIES PAIN. POWERGLIDE PLACED IN DIANDRA, DOES NOT DRAW. PT INC OF URINE. ATTENDS IN PLACE. NO BM. BED IN LOW, CALL LIGHT IN REACH, WILL REPORT TO ONCOMING RN.
[2022-12-04 04:38] LABS: Albumin, Blood 2.2 g/dL (3.4-5.0); Albumin/Globulin Ratio 0.8 (0.8-1.8); Bilirubin, Total 1.3 mg/dL (0.1-1.0); Bun/Creatinine Ratio 8.1 (12.0-20.0); Calcium, Blood 7.9 mg/dL (8.5-10.1); Creatinine, Blood 0.5 mg/dL (0.40-1.00); Globulin, Blood 2.7 g/dL (2.2-4.0); Potassium, Blood 3.3 mmol/L (3.5-5.5); Total Protein, Blood 4.9 g/dL (6.4-8.2)
[2022-12-04 05:10] LABS: BASOPHILS PERCENT MAN 0 % (0-2); EOSINOPHILS ABSOLUTE MAN 0.09 K/mm3 (0.00-0.68); EOSINOPHILS PERCENT MAN 1 % (0-6); LYMPHOCYTES PERCENT MAN 30 % (21-46); MONOCYTES ABSOLUTE MAN 2.43 K/mm3 (0.16-1.47); MONOCYTES PERCENT MAN 27 % (4-13); NEUTROPHILS ABSOLUTE MAN 3.79 K/mm3 (1.96-9.15); SEG NEUTROPHILS PERCENT MAN 42 % (41-73); TOTAL CELLS COUNTED 100
[2022-12-04 07:00] VITALS: BP 120/75
--- NOTE | 2022-12-04 10:49 | NUR ---
MORNING SUMMARY PT IS MORE ALERT AND ORIENTED TODAY. SHE IS A&OX3. CIWA HAS BEEN 4 OR LESS THIS AM. SHE WAS GIVEN IMMODIUM ONCE FOR DIARRHEA. SHE WORKED WITH PT AND IS A 1-2P ASSIST WITH FWW. PT IS UNSTEADY ON HER FEET. DR. GANNON D/C'D HER TELE THIS AM BECAUSE PT HAS HAD NO CARDIAC EVENT AND HR IS MORE STABLE IN THE 80'S-90'S. PT IS CALLING APPROPRIATELY TODAY BUT IS STILL IMPULISVE. SHE WAS TRANSFERED TO [facility] AND REPORT WAS GIVEN TO MARYJO Tapia RN.
--- NOTE | 2022-12-04 10:53 | NUR ---
I LEFT A VOICEMAIL WITH THE PT'S SON TO LET HIM KNOW SHE IS TRANSFERING TO MEDICAL FLOOR.
[2022-12-04 14:41] VITALS: BP 145/76
--- NOTE | 2022-12-04 18:17 | NUR ---
SHIFT SUMMARY; PATIENT TRANSFERRED FROM PCU TODAY. SHE IS ORIEINTED TO PERSON AND PLACE. SHE REPEATEDLY ASKS FOR WINE AND TO GO HOME. SHE IS A ONE PERSON ASSIST TO BEDSIDE COMMODE. BED ALARM IN PLACE. PATIENT HAS TO BE REDIRECCTED SHE HAS SHORT TERM MEMORY LAPSES. NO SKIN ISSUES NOTED. POWER GLIDE TO UPPER LEFT ARM. DR. MONTES CAME TO SEE PATIENT AND SEROQUIN AT [facility] IS ORDERED.
[2022-12-04 20:19] VITALS: BP 148/85
[2022-12-05 01:01] VITALS: BP 140/73
[2022-12-05 05:23] LABS: Hematocrit 30.9 % (33.0-51.0); Hemoglobin 10.2 g/dL (11.5-16.0); Mean Corpuscular HGB 36.7 pg (26.0-34.0); Mean Corpuscular Volume 111 fL (80-100); Mean Platelet Volume 10.1 fL (9.1-12.4); Platelet Count 259 K/mm3 (150-400); RDW Standard Deviation 61.7 fL (35.1-46.3); Red Blood Cell Count 2.78 M/mm3 (3.80-5.20); White Blood Cell Count 6.66 K/mm3 (4.00-11.30)
[2022-12-05 05:47] LABS: Albumin, Blood 2.1 g/dL (3.4-5.0); Anion Gap 6 mmol/L (6-16); Blood Urea Nitrogen 6 mg/dL (8-24); Bun/Creatinine Ratio 11.7 (12.0-20.0); CO2, Blood 28 mmol/L (21-32); Calcium, Blood 8.1 mg/dL (8.5-10.1); Chloride, Blood 105 mmol/L (98-108); Creatinine, Blood 0.51 mg/dL (0.40-1.00); Glomerular Filtration Rate 102 (60-); Glucose, Blood 84 mg/dL (70-99); Phosphorus, Blood 3.8 mg/dL (2.5-4.9); Potassium, Blood 3.3 mmol/L (3.5-5.5); Sodium, Blood 139 mmol/L (136-145)
[2022-12-05 06:04] LABS: BASOPHILS PERCENT MAN 0 % (0-2); EOSINOPHILS PERCENT MAN 0 % (0-6); LYMPHOCYTES ABSOLUTE MAN 1.86 K/mm3 (0.84-5.20); LYMPHOCYTES PERCENT MAN 28 % (21-46); MONOCYTES ABSOLUTE MAN 1.79 K/mm3 (0.16-1.47); MONOCYTES PERCENT MAN 27 % (4-13); NEUTROPHILS ABSOLUTE MAN 2.99 K/mm3 (1.96-9.15); SEG NEUTROPHILS PERCENT MAN 45 % (41-73); TOTAL CELLS COUNTED 100
[2022-12-05 07:26] VITALS: BP 132/74
--- NOTE | 2022-12-05 07:59 | NUR ---
SHIFT SUMMARY PATIENT ALERT, FORGETFUL AT TIMES. DENIES PAIN NOR DISCOMFORT. REQUIRES 1 ASSIST TO BSC. CONTINUES TO HAVE POOR BALANCE. ATTEMPTED TO GET UP OUT OF BED WITHOUT CALLING FIRST X2 THIS SHIFT. BED ALARM ON FOR PATIENT SAFETY. NO ACUTE CHANGES NOTED OVERNIGHT. BED IN LOW POSITION, CALL LIGHT WITHIN REACH.
[2022-12-05] MEDS ORDERED: VISBIOME 112.51 EACH PO (11:04)
[2022-12-05] MEDS ORDERED: METO50 PO (11:04)
[2022-12-05] MEDS ORDERED: CEPH500 PO (11:05)
[2022-12-05 14:55] VITALS: BP 130/77
--- NOTE | 2022-12-05 16:26 | NUR ---
SHIFT SUMMARY: PATIENT A&OX2-3. FORGETFUL AND CONFUSED AT TIMES. CIWA SCORE OF 3 THIS AM. DENIES CP/PRESSURE, SOB, N/V AND GENERALIZED PAIN. ON 1L OF O2 c SPO2 ABOVE 92%. PATIENT WORK c PT MOBILITY THIS PM AND TOLERATED WELL c 1 ASSIST, GAITBELT AND FWW. PT RECOMMENDED HH SERVICES c SUPERVISION. THIS RN TRY MULTIPLE TIMES TO REACH OUT TO MARIA L (BOYFRIEND) AND LEFT A MESSAGE AT PHONE NUMBER [phone] TO CALL BACK, AWAITING FOR RESPONDS FROM MARIA L(BOYFRIEND). DISCHARGE PENDING D/T SON'S SAFETY CONCERNS NO ONE IS ABLE TO KEEP AN EYE ON PATIENT AT HOME. PER ANNIKA (SON) OVER THE PHONE HE LIVES IN [place] AND HE IS PLANNING TO COME AND SEE PATIENT SOMETIMES NEXT WEEK. VITAL SIGNS REVIEWED. RECEIVED SCHEDULED MEDS PER EMAR. BED ALARM ON FOR SAFETY. CALL LIGHT IN REACH. PATIENT EDUCATED ON NON SMOKING POLICY, RISK OF INJURY AND IGNITION SOURCES WHEN O2 IS IN USE. PATIENT DENIES SMOKING AND VERBALIZED UNDERSTANDING.
[2022-12-05 20:40] VITALS: BP 125/70
[2022-12-06 02:06] VITALS: BP 97/80
--- NOTE | 2022-12-06 05:21 | NUR ---
SHIFT SUMMARY PATIENT A/Ox2-3, FORGETFUL, CONFUSED AT TIMES, HAS BEEN COMPLIANT WITH USING CALL LIGHT AND WAITING FOR STAFF TO ASSIST HER TO BSC. NO ATTEMPTS TO GET UP ON OWN WITHOUT ASSIST. APPEARES TO BE MORE SELF AWARE, IMPROVED SAFETY AWARENESS. NO ACUTE CHANGES NOTED OVERNIGHT. BED LOW, CALL LIGHT WITHIN REACH.
[2022-12-06 05:48] LABS: Bun/Creatinine Ratio 11.9 (12.0-20.0); Calcium, Blood 8.1 mg/dL (8.5-10.1); Creatinine, Blood 0.5 mg/dL (0.40-1.00); Potassium, Blood 3.7 mmol/L (3.5-5.5)
[2022-12-06 06:08] VITALS: BP 127/73
[2022-12-06 07:48] VITALS: BP 126/97
--- NOTE | 2022-12-06 14:59 | NUR ---
NOTES/DISCHARGE SUMMARY: PATIENT A&OX3. PATIENT MENTATION IS IMPROVING TODAY COMPARED YESTERDAY. SOME FORGETFULNESS, BUT ANSWER TO QUESTIONS APPROPRIATELY. CALM, PLEASANT AND COOPERATIVE c CARE. PATIENT USES CALL LIGHT AND ABLE TO MAKE NEEDS KNOWN. RA c SPO2 ABOVE 95%. RECEIVED SCHEDULED MEDS PER EMAR. PATIENT IS EATING AND DRINKING WELL. CONTINENCE OF BOWELS AND BLADDER AND AMBULATES TO BATHROOM c SBA, FWW AND GAITBELT. VITAL SIGNS REVIEWED. POWERGLIDE TO DIANDAR DC'D. PATIENT EDUCATED ON NON SMOKING POLICY, RISK OF INJURY AND IGNITION SOURCES WHEN O2 IN USE. PATIENT DENIES SMOKING AND VERBALIZED UNDERSTANDING. PATIENT DISCHARGE HOME. DISCHARGE INSTRUCTIONS PACKET GIVEN TO PATIENT. EDUCATED PATIENT REGARDING ADMITTING DX OF SEVERE HYPONATREMIA D/T ALCOHOL INTAKE, S/S, TX AND NEW PRESCRIBED MEDICATIONS TO HOME. PATIENT VERBALIZED UNDERSTANDING AND NO FURTHER QUESTIONS. RX WAS FAXED TO [facility] BY ILIANA SCHRADER RN YESTERDAY. ALL PATIENT PERSONAL BELONGINGS WERE SENT HOME c THE PATIENT. PATIENT LEFT THE ROOM AT AROUND 1455. PATIENT WAS TRANSPORTED VIA WHEELCHAIR BY CLOTH GRADER STAFF TO PATIENT ENTRANCE.
== END 2022-12-06 15:00 | disposition home health service (06) | DRG 871 ==
LOC: ER 10:29 → ICUE 10:30 → MEDS 10:30 → ICUE 14:45 → PCU 12-02 16:39 → MEDS 12-04 11:07 → ENPENDDIS 12-05 09:49 → EDPENDDIS 12-05 09:49 → MEDS 12-06 15:00
PROVIDERS: Family Medicine; Internal Medicine; Student in an Organized Health Care Education/Training Program; ADMIT Hospitalist
PROC: HZ2ZZZZ Detoxification Services for Substance Abuse Treatment (ICD-10-PCS; principal; 2022-11-29)
PROC: 3E03329 Introduction of Other Anti-infective into Peripheral Vein, Percutaneous Approach (ICD-10-PCS; 2022-11-29)
PROC: 0T9B70Z Drainage of Bladder with Drainage Device, Via Natural or Artificial Opening (ICD-10-PCS; 2022-11-29)
DX: A41.9 Sepsis, unspecified organism (principal); G92.8 Other toxic encephalopathy; J18.9 Pneumonia, unspecified organism; J69.0 Pneumonitis due to inhalation of food and vomit; R65.20 Severe sepsis without septic shock; E87.1 Hypo-osmolality and hyponatremia; E72.20 Disorder of urea cycle metabolism, unspecified; E87.20 Acidosis, unspecified; F10.131 Alcohol abuse with withdrawal delirium; R00.1 Bradycardia, unspecified; E87.6 Hypokalemia; R00.0 Tachycardia, unspecified; D64.9 Anemia, unspecified; R29.6 Repeated falls; F19.10 Other psychoactive substance abuse, uncomplicated; D69.6 Thrombocytopenia, unspecified; R73.9 Hyperglycemia, unspecified; G31.84 Mild cognitive impairment of uncertain or unknown etiology; E83.42 Hypomagnesemia; E78.5 Hyperlipidemia, unspecified; K76.82 Hepatic encephalopathy; E83.51 Hypocalcemia; R74.01 Elevation of levels of liver transaminase levels; Z79.899 Other long term (current) drug therapy
CPT/HCPCS: 36415; 51702; 70450; 71045; 72125; 80048; 80053; 80069; 81001; 82140; 82330; 82803; 82947; 83605; 83735; 85018; 85025; 87040; 92526; 92610; 93005; 93010; 93306; 94760; 94762; 97116; 97129; 97162; 97165; 97530; 97535; 99285-25; A9270; C1751; C9113; G0378; G0480; J0295; J0456; J0612; J0696; J1650; J1885; J2060; J2185; J2250; J3411; J3475; J3480; J7030; J7042; J7050

== ENCOUNTER → 2024-07-22 | Outpatient (CLI) | payer OTHER ==
[~2024-07-22] MED LIST changes: +CEPH500 PO; +METO50 PO; +VISBIOME 112.51 EACH PO
[2024-07-22 20:18] LABS: BASOPHILS ABSOLUTE AUTO 0.06 K/mm3 (0.00-0.23); BASOPHILS PERCENT AUTO 1 % (0-2); EOSINOPHILS ABSOLUTE AUTO 0.03 K/mm3 (0.00-0.68); EOSINOPHILS PERCENT AUTO 0 % (0-6); Hematocrit 37.5 % (33.0-51.0); Hemoglobin 11.6 g/dL (11.5-16.0); IMMATURE GRAN ABSOLUTE AUTO 0.03 K/mm3 (0.00-0.10); IMMATURE GRAN PERCENT AUTO 0 % (0-1); LYMPHOCYTES ABSOLUTE AUTO 2.82 K/mm3 (0.84-5.20); LYMPHOCYTES PERCENT AUTO 35 % (21-46); MONOCYTES ABSOLUTE AUTO 0.76 K/mm3 (0.16-1.47); MONOCYTES PERCENT AUTO 9 % (4-13); Mean Corpuscular HGB 29.8 pg (26.0-34.0); Mean Corpuscular HGB Conc 30.9 g/dL (31.5-36.5); Mean Corpuscular Volume 96 fL (80-100); NEUTROPHILS ABSOLUTE AUTO 4.37 K/mm3 (1.96-9.15); NEUTROPHILS PERCENT AUTO 54 % (41-73); Platelet Count 398 K/mm3 (150-400); RDW Coefficient Variation 16.5 % (11.7-14.2); RDW Standard Deviation 57.5 fL (35.1-46.3); Red Blood Cell Count 3.89 M/mm3 (3.80-5.20); White Blood Cell Count 8.07 K/mm3 (4.00-11.30)
[2024-07-22 21:43] LABS: Alanine Aminotransfer (ALT/SGP 33 U/L (12-78); Albumin/Globulin Ratio 1.6 (0.8-1.8); Alk Phos 79 U/L (50-136); Anion Gap 8 mmol/L (3-11); Aspartate Aminotrans (AST/SGOT 28 U/L (12-37); Bilirubin, Total 0.4 mg/dL (0.1-1.0); Blood Urea Nitrogen 19 mg/dL (8-24); Bun/Creatinine Ratio 23.1 (12.0-20.0); CHOL/HDL RATIO 3.1; CO2, Blood 27 mmol/L (21-32); Chloride, Blood 107 mmol/L (98-108); Cholesterol 160 mg/dL (50-200); Creatinine, Blood 0.82 mg/dL (0.40-1.00); Globulin, Blood 2.5 g/dL (2.2-4.0); Glomerular Filtration Rate 77 (60-); Glucose, Blood 108 mg/dL (70-99); HDL Cholesterol 51 mg/dL (>39); Iron Serum 37 ug/dL (50-170); LDL/HDL RATIO 1.4; Low Density Lipoprotein Chol 72 mg/dL (0-110); Percent Saturation 11.1 % (15.0-50.0); Potassium, Blood 4.3 mmol/L (3.5-5.5); Sodium, Blood 138 mmol/L (136-145); Total Iron Binding Capacity 332 ug/dL (250-450); Total Protein, Blood 6.5 g/dL (6.4-8.2); Triglycerides 183 mg/dL (30-160); Very Low Density Lipoprot Chol 36 mg/dL (6-32)
== END ==
LOC: LAB 18:47 → LAB SHORT 18:47
PROVIDERS: Physician Assistant
DX: E78.5 Hyperlipidemia, unspecified (principal); Z79.899 Other long term (current) drug therapy; Z98.84 Bariatric surgery status
CPT/HCPCS: 80053; 80061; 82306; 82607; 82746; 83540; 83550; 84443; 85025